=== PATIENT | male | born 1985 | race Caucasian/White ===

== ENCOUNTER 2025-01-18 20:10 | Emergency (ER) | payer MEDICAID ==
[2025-01-18] MEDS ORDERED: Sodium Chloride 0.9% 10 ML Syringe FLUSH PRN (20:19)
[2025-01-18 20:56] LABS: BASOPHILS ABSOLUTE AUTO 0.06 10^3/uL (0.00-0.10); BASOPHILS PERCENT AUTO 0.6 % (0.0-1.0); EOSINOPHILS ABSOLUTE AUTO 0.17 10^3/uL (0.10-0.30); EOSINOPHILS PERCENT AUTO 1.7 % (1.0-3.0); HEMATOCRIT 41.8 % (40.0-52.0); HEMOGLOBIN 14.3 g/dL (13.0-17.0); IMMATURE GRAN ABSOLUTE AUTO 0.01 10^3/uL (0.00-0.04); IMMATURE GRAN PERCENT AUTO 0.1 % (0.0-0.4); LYMPHOCYTES ABSOLUTE AUTO 2.22 10^3/uL (1.00-4.00); LYMPHOCYTES PERCENT AUTO 22.3 % (20.0-40.0); MEAN CORPUSCULAR HEMOGLOBIN 30.1 pg (27.0-31.0); MEAN CORPUSCULAR HGB CONC 34.2 g/dL (32.0-36.0); MEAN PLATELET VOLUME 9.8 fL (7.4-10.4); MONOCYTES ABSOLUTE AUTO 0.61 10^3/uL (0.10-0.80); MONOCYTES PERCENT AUTO 6.1 % (2.0-8.0); NEUTROPHILS PERCENT AUTO 69.2 % (50.0-70.0); PLATELET COUNT,PLT 287 10^3/uL (150-400); RED BLOOD CELL COUNT 4.75 10^6/uL (4.50-6.00); RED CELL DISTRIBUTION WIDTH 12.1 % (11.5-14.5); WHITE BLOOD CELL COUNT,WBC 9.97 10^3/uL (5.00-10.00)
[2025-01-18] MEDS: Sodium Chloride 0.9% 1,000 ML IV ONE (21:10)
[2025-01-18 21:12] LABS: THC SCREEN,URINE 50 NG/ML POSITIVE (NEGATIVE)
[2025-01-18 21:13] LABS: ALANINE AMINOTRANSFERASE,ALT 21 U/L (14-63); ALBUMIN 4.12 g/dL (3.40-5.00); ALKALINE PHOSPHATASE 57 U/L (46-116); ANION GAP 16.3 mmol/L (5-15); ASPARTATE AMNIOTRANSFERASE,AST 16 U/L (15-37); BILIRUBIN TOTAL 0.4 mg/dL (0.2-1.0); BLOOD UREA NITROGEN,BUN 24 mg/dL (7-18); CALCIUM 9.1 mg/dL (8.7-10.3); CARBON DIOXIDE,CO2 24.3 mmol/L (21.0-32.0); CHLORIDE,CL 104 mmol/L (98-107); CREATININE 0.92 mg/dL (0.51-1.17); GLUCOSE RANDOM 99 mg/dL (70-140); POTASSIUM,K 3.6 mmol/L (3.5-5.1); PROTEIN TOTAL,TP 7.4 g/dL (6.4-8.2); SODIUM,NA 141 mmol/L (136-145)
[2025-01-18 21:13] LABS: AMPHETAMINES SCREEN, URINE NEGATIVE (NEGATIVE); BARBITURATE SCREEN,URINE NEGATIVE (NEGATIVE); BENZODIAZEPINES SCREEN,URINE POSITIVE (NEGATIVE); COCAINE METABOLITES,URINE POSITIVE (NEGATIVE); METHADONE SCREEN, URINE NEGATIVE (NEGATIVE); METHAMPHETAMINES SCREEN, URINE NEGATIVE (NEGATIVE); OXYCODONE SCREEN,URINE NEGATIVE (NEGATIVE); PCP SCREEN,URINE NEGATIVE (NEGATIVE); TCA SCREEN,URINE NEGATIVE (NEGATIVE)
[2025-01-18 21:15] LABS: ESTIMATED GFR 109 mL/min (>=60); ETHANOL BLOOD MEDICAL 1 mg/dL (<3)
== END 2025-01-18 23:10 ==
LOC: KA.ED 20:10
DX: F23 Brief psychotic disorder (principal)
CPT/HCPCS: 36415; 70450; 80053; 80305-QW; 80307; 83605; 85025; 96360; 99284; 99285-25; J7030